=== PATIENT | male | born 1990 | race African-American/Black ===

== ENCOUNTER 2018-02-28 11:59 | Emergency (ER) | payer MEDICAID, OTHER ==
[~2018-02-28] VITALS: Ht 180.3 cm; Wt 68.2 kg
[2018-02-28 12:14] VITALS: BP 136/99
== END 2018-02-28 14:45 | disposition home or self-care (01) ==
LOC: ER 13:51
DX: Z76.89 Persons encountering health services in other specified circumstances (principal); M79.641 Pain in right hand; R03.0 Elevated blood-pressure reading, without diagnosis of hypertension; F17.210 Nicotine dependence, cigarettes, uncomplicated; F12.90 Cannabis use, unspecified, uncomplicated
CPT/HCPCS: 99281

== ENCOUNTER 2018-06-03 15:07 | Emergency (ER) | payer MEDICAID ==
[~2018-06-03] VITALS: Ht 182.9 cm; Wt 60.0 kg
[2018-06-03 15:29] VITALS: BP 125/62
== END 2018-06-03 15:54 | disposition left against medical advice (07) ==
LOC: ER 15:53
DX: Z53.21 Procedure and treatment not carried out due to patient leaving prior to being seen by health care provider (principal); T17.298A Other foreign object in pharynx causing other injury, initial encounter; X58.XXXA Exposure to other specified factors, initial encounter; Y93.89 Activity, other specified; Y92.89 Other specified places as the place of occurrence of the external cause

== ENCOUNTER 2018-06-03 16:20 | Emergency (ER) | payer MEDICAID ==
[~2018-06-03] VITALS: Ht 182.9 cm; Wt 75.0 kg
[2018-06-03 17:40] VITALS: BP 105/62
== END 2018-06-03 18:16 | disposition home or self-care (01) ==
LOC: ER 18:07
DX: J06.9 Acute upper respiratory infection, unspecified (principal); T17.298A Other foreign object in pharynx causing other injury, initial encounter; R03.0 Elevated blood-pressure reading, without diagnosis of hypertension; X58.XXXA Exposure to other specified factors, initial encounter; Y93.89 Activity, other specified; Y92.89 Other specified places as the place of occurrence of the external cause; F12.90 Cannabis use, unspecified, uncomplicated
CPT/HCPCS: 74018; 99283

== ENCOUNTER 2018-07-07 17:52 | Emergency (ER) | payer MEDICAID ==
[~2018-07-07] VITALS: Ht 170.2 cm; Wt 7.0 kg
[2018-07-07] MEDS ORDERED: SODIUM CHLORIDE 0.9% 1,000 ML IV ONE (19:17)
[2018-07-07] MEDS ORDERED: BACITRACIN ZINC OINT UDPKT TOP ONE (19:30)
[2018-07-07 20:05] LABS: BASOPHILS % 0.7 % (0.0-2.0); EOSINOPHILS % 1.7 % (0.0-5.0); HEMATOCRIT. 36.7 % (42.0-52.0); HEMOGLOBIN. 12.5 g/dL (14.0-18.0); LYMPHOCYTES % 17.1 % (20.0-50.0); MEAN CORPUSCULAR HEMOGLOBIN 30.7 pg (28.0-32.0); MEAN CORPUSCULAR VOLUME 90.4 fL (80.0-94.0); MEAN PLATELET VOLUME 8.1 fl (7.4-10.4); MONOCYTES % 7.4 % (2.0-8.0); NEUTROPHILS % 73.1 % (40.0-76.0); PLATELET 215 x1000/uL (130-400); RED BLOOD CELL COUNT 4.06 mill/uL (4.7-6.1); RED CELL DISTRIBUTION WIDTH 14.1 % (11.6-14.6)
[2018-07-07 20:07] LABS: CHLORIDE 107 mEq/L (98-107)
[2018-07-07 20:11] LABS: ETHANOL BLOOD < 10 mg/dL
[2018-07-07 22:52] LABS: *AMPHETAMINES SCREEN URINE NEGATIVE (NEGATIVE); *BARBITURATES SCREEN URINE NEGATIVE (NEGATIVE); *BENZODIAZEPINES SCREEN URINE NEGATIVE (NEGATIVE); *COCAINE SCREEN URINE NEGATIVE (NEGATIVE)
[2018-07-07 22:53] LABS: CANNABINOID URINE SCREEN PRESUMTIVE POSITIVE (NEGATIVE); METHADONE URINE SCREEN NEGATIVE (NEGATIVE); OPIATES URINE SCREEN NEGATIVE (NEGATIVE); PHENCYCLIDINE URINE SCREEN NEGATIVE (NEGATIVE)
[2018-07-08 00:16] VITALS: BP 109/69
== END 2018-07-08 00:21 | disposition home or self-care (01) ==
LOC: ER 17:52
DX: R55 Syncope and collapse (principal); S00.81XA Abrasion of other part of head, initial encounter; S02.5XXA Fracture of tooth (traumatic), initial encounter for closed fracture; F12.10 Cannabis abuse, uncomplicated; M54.2 Cervicalgia; M25.562 Pain in left knee; M25.561 Pain in right knee; R05 Cough; W01.198A Fall on same level from slipping, tripping and stumbling with subsequent striking against other object, initial encounter; Y93.89 Activity, other specified; Y92.89 Other specified places as the place of occurrence of the external cause; Z88.0 Allergy status to penicillin
CPT/HCPCS: 36415; 70450; 71045; 72125; 80053; 80305; 80320; 82962; 84484; 85025; 93005; 96360; 99284; J7030; G0480

== ENCOUNTER 2018-07-16 08:12 | Emergency (ER) | payer MEDICAID ==
[~2018-07-16] VITALS: Ht 182.9 cm; Wt 82.0 kg
[2018-07-16 09:24] VITALS: BP 130/84
== END 2018-07-16 09:26 | disposition home or self-care (01) ==
LOC: ER 08:12
DX: S00.83XA Contusion of other part of head, initial encounter (principal); F12.10 Cannabis abuse, uncomplicated; W18.39XA Other fall on same level, initial encounter; Y93.89 Activity, other specified; Y92.89 Other specified places as the place of occurrence of the external cause; Y99.8 Other external cause status; Z88.0 Allergy status to penicillin
CPT/HCPCS: 99281

== ENCOUNTER 2022-04-14 10:31 | Emergency (ER) | payer MEDICAID ==
[~2022-04-14] VITALS: Ht 177.8 cm; Wt 70.0 kg
[2022-04-14 10:34] VITALS: BP 130/92
== END 2022-04-14 14:16 | disposition home or self-care (01) ==
LOC: ER 10:31
DX: H93.13 Tinnitus, bilateral (principal); F12.10 Cannabis abuse, uncomplicated; Z88.0 Allergy status to penicillin
CPT/HCPCS: 99281